=== PATIENT | female | born 1955 | race Caucasian/White ===

== ENCOUNTER 2021-05-23 19:57 | Emergency (ER) | payer OTHER, MEDICARE ==
[2021-05-23] MEDS ORDERED: Ondansetron ODT 4 MG TAB ONE (21:03)
[2021-05-23] MEDS ORDERED: Cyclobenzaprine 10 MG TAB ONE (21:03)
[2021-05-23] MEDS ORDERED: HYDROcodone/Acetaminophen 10/325 mg Tablet ONE (21:13)
== END 2021-05-23 22:28 | disposition home or self-care (01) ==
LOC: MADERS 19:57
DX: S42.211A Unspecified displaced fracture of surgical neck of right humerus, initial encounter for closed fracture (principal); W01.198A Fall on same level from slipping, tripping and stumbling with subsequent striking against other object, initial encounter; Y92.008 Other place in unspecified non-institutional (private) residence as the place of occurrence of the external cause
CPT/HCPCS: Q0162